=== PATIENT | female | born 1960 | race Caucasian/White ===

== ENCOUNTER 2020-08-08 10:46 | Outpatient (CLI) | payer OTHER ==
--- NOTE | 2020-08-09 11:39 | Mammography Report ---
BILATERAL DIGITAL SCREENING MAMMOGRAM 3D/2D: 08/08/2020 CLINICAL: Family history of breast cancer. Routine screening. Comparison is made to exams dated: 04/16/2019 mammogram, 11/15/2017 ultrasound, and 11/11/2017 mammogram - [facility]. There are scattered fibroglandular elements in both breasts. There is a 0.4 cm oval equal density asymmetry in the left breast middle depth superior region seen o n the mediolateral oblique view only. This appears more prominent. There also is a possible 0.7 cm oval high density asymmetry in the left breast middle depth superior region seen on the mediolateral oblique view only. This appears more prominent and increased in size . No other significant masses, calcifications, or other findings are seen in either breast. IMPRESSION: INCOMPLETE: NEEDS ADDITIONAL IMAGING EVALUATION The 0.4 cm oval equal density asymmetry in the left breast middle depth superior region seen on the m ediolateral oblique view only is indeterminate. Additional views with possible ultrasound are recomm ended. The possible 0.7 cm oval high density asymmetry in the left breast middle depth superior region seen on the mediolateral oblique view only is indeterminate. Additional views with possible ultrasound ar e recommended. This exam was interpreted at Station ID: [id number]. NOTE: For mammograms, a report in lay terms will be sent to the patient. Approximately 15% of breast malignancies will not be visualized mammographically. In the management of a palpable breast mass, a negative mammogram must not discourage biopsy of a clinically suspicious lesion. Electronically Signed By: Oleg Grijalva M.D. aty/:08/08/2020 11:34:04 ACR BI-RADS Category 0: Incomplete 3340F PARENCHYMAL PATTERN: (A) - The breast(s) demonstrate(s) scattered fibroglandular densities. BI-RADS CATEGORY: (0) - 0 Mammo and [place] [id number] Immediate follow-up LATERALITY: (L)
== END 2020-08-08 10:47 | disposition home or self-care (01) ==
LOC: DI.N 10:46
PROVIDERS: ATTEND Internal Medicine
DX: Z12.31 Encounter for screening mammogram for malignant neoplasm of breast (principal); Z80.3 Family history of malignant neoplasm of breast; N64.89 Other specified disorders of breast

== ENCOUNTER 2020-08-29 09:03 | Outpatient (CLI) | payer OTHER ==
--- NOTE | 2020-08-30 09:59 | Mammography Report ---
UNILATERAL LEFT DIGITAL DIAGNOSTIC MAMMOGRAM 3D/2D: 08/29/2020 CLINICAL: Patient returns today to evaluate a focal asymmetry in the left breast. Comparison is made to exams dated: 08/08/2020 mammogram - [facility], 04/16/2019 [facility], and 11/11/2017 mammogram - [facility]. There are scattered fibroglandular elements in le ft breast. There also is an asymmetry in the left breast middle depth superior region seen on the mediolateral o blique view only. This is not seen in additional views. There is a 0.4 cm oval equal density asymmetry in the left breast middle depth superior region seen o n the mediolateral oblique view only is stable in appearance on additional views since 2018. No other significant masses or calcifications are seen in the breast. IMPRESSION: INCOMPLETE: NEEDS ADDITIONAL IMAGING EVALUATION The asymmetry in the left breast middle depth superior region seen on the mediolateral oblique view o nly is not seen on additional views. -A second look with ultrasound is recommended and will immediately follow. The oval asymmetry in the left breast resembles a lymph node and is stable since 2018. This exam was interpreted at Station ID: [id number]. NOTE: For mammograms, a report in lay terms will be sent to the patient. Approximately 15% of breast malignancies will not be visualized mammographically. In the management of a palpable breast mass, a negative mammogram must not discourage biopsy of a clinically suspicious lesion. Electronically Signed By: Azeem Gilman M.D. slc/:08/29/2020 10:49:43 ACR BI-RADS Category 0: Incomplete 3340F PARENCHYMAL PATTERN: (A) - The breast(s) demonstrate(s) scattered fibroglandular densities. BI-RADS CATEGORY: (0) - 0 Ultrasound [id number] Immediate follow-up LATERALITY: (B)
--- NOTE | 2020-08-30 09:59 | Ultrasound Report ---
LIMITED ULTRASOUND OF LEFT BREAST: 08/29/2020 CLINICAL: Patient returns today to evaluate an asymmetries in left breast. Comparison is made to exams dated: 08/29/2020 mammogram, 08/08/2020 mammogram - [facility], 04/16/2019 mammogram, 11/15/2017 ultrasound, and 11/11/2017 mammogram - [facility]. Color flow and real-time ultrasound of the left breast 12-1 o'clock region were performed. Millard scal e images of the real-time examination were reviewed. There is a benign 0.4 cm oval simple cyst in the left breast at 1 o'clock middle depth. This oval si mple cyst is anechoic with a well-defined boundary and posterior acoustic enhancement. Color flow im aging demonstrates that there is no vascularity present. Asymmetry in the more superior breast is not identified on ultrasound. IMPRESSION: BENIGN There is no sonographic evidence of malignancy. The 0.4 cm oval simple cyst in the left breast at 1 o'clock middle depth is benign. A 1 year screening mammogram is recommended. Exam findings were conveyed to the patient. This exam was interpreted at Station ID: [id number]. Electronically Signed By: Azeem Gilman M.D. slc/:08/29/2020 10:45:31 Ultrasound BI-RADS: 2 Benign BI-RADS CATEGORY: (2) - 2 RECOMMENDATION: (ANNUAL) - Recommend routine annual screening mammography. [id number] 1 year screening LATERALITY: (B)
== END 2020-08-29 09:04 | disposition home or self-care (01) ==
LOC: DI 09:03
PROVIDERS: ATTEND Internal Medicine
DX: R92.8 Other abnormal and inconclusive findings on diagnostic imaging of breast (principal); N60.02 Solitary cyst of left breast